=== PATIENT | male | born 1935 | race Caucasian/White ===

== ENCOUNTER 2022-12-15 12:58 | Observation (INO) | payer MEDICARE ==
[2022-12-15] MEDS ORDERED: ASPIRIN 81 MG PO STA (13:09)
[2022-12-15] MEDS ORDERED: NITROGLYCERIN OINT 1 INCH/GM PACKET TOPICAL STA (13:09)
--- NOTE | 2022-12-15 13:10 | ED ---
General Adult HPI - General Chief complaint: Chest Pain Stated complaint: [place] Pain Time Seen by Provider: 12/15/22 13:00 Source: patient, EMS, RN notes reviewed Mode of arrival: EMS Limitations: no limitations - History of Present Illness Initial comments: Patient is a pleasant 87-year-old male presenting to the emergency department with concern with chest discomfort. Onset of symptoms was prior to arrival. Symptoms lasted around a half an hour and have now resolved. Patient states he did have similar symptoms once previously associated with heart attack. Discomfort felt like pressure. No associated dyspnea, nausea, or diaphoresis. No radiation. No leg pain or leg swelling. - Related Data Allergies Allergy/AdvReac Type Severity Reaction Status Date / Time Penicillins Allergy Itching Verified 12/15/22 13:04 Review of Systems ROS Statement: Those systems with pertinent positive or pertinent negative responses have been documented in the HPI. ROS Other: All systems not noted in ROS Statement are negative. Constitutional: Denies: fever Eyes: Denies: eye pain ENT: Denies: ear pain Respiratory: Denies: cough, dyspnea Cardiovascular: Reports: as per HPI, chest pain Endocrine: Denies: fatigue Gastrointestinal: Denies: abdominal pain Genitourinary: Denies: dysuria Musculoskeletal: Denies: back pain Skin: Denies: rash General Exam Limitations: no limitations General appearance: alert, in no apparent distress Head exam: Present: normocephalic Eye exam: Present: normal appearance Neck exam: Present: normal inspection Respiratory exam: Present: normal lung sounds bilaterally. Absent: chest wall tenderness Cardiovascular Exam: Present: regular rate, normal rhythm, normal heart sounds Expanded Peripheral pulses: 2+: Radial (R), Radial (L), Dorsalis Pedis (R), Dorsalis Pedis (L) GI/Abdominal exam: Present: soft. Absent: tenderness Extremities exam: Present: pedal edema (Trace bilateral). Absent: calf tenderness Neurological exam: Present: alert Psychiatric exam: Present: normal affect, normal mood Skin exam: Present: normal color Course Vital Signs 12/15/22 13:01 Temperature 98.1 F Pulse Rate 62 Respiratory 18 Rate Blood Pressure 139/94 O2 Sat by Pulse 96 Oximetry EKG Findings - EKG Results: EKG: interpreted by ERMD ((X this. Low QRS voltage precordial leads. Lateral T wave flattening. Inferior Q waves with inverted T waves.), sinus rhythm Medical Decision Making - Medical Decision Making Was pt. sent in by a medical professional or institution (RENETTA Mahajan, REGIONAL PROJECT MANAGER, urgent care, hospital, or longterm...) When possible be specific @ -Patient does present from [facility] Did you speak to anyone other than the patient for history (EMS, parent, family, police, friend...)? What history was obtained from this source @ -Family is present and helps confirm history Did you review nursing and triage notes (agree or disagree)? Why? @ -I reviewed and agree with nursing and triage notes Were old charts reviewed (outside hosp., previous admission, EMS record, old EKG, old radiological studies, urgent care reports/EKG's, longterm records)? Report findings @ -No old charts were reviewed Differential Diagnosis (chest pain, altered mental status, abdominal pain women, abdominal pain men, vaginal bleeding, weakness, fever, dyspnea, syncope, headache, dizziness, GI bleed, back pain, seizure, CVA, palpatations, mental health, musculoskeletal)? @ -Differential Chest Pain: Stable Angina, Unstable Angina, STEMI, NSTEMI Aortic Dissection, Pneumothorax, Musculoskeletal, Esophageal Spasm GERD, Cholecystitis, Pancreatitis, Zoster, this is not meant to be an all-inclusive list. EKG interpreted by me (3pts min.). @ -As above X-rays interpreted by me (1pt min.). @ -Chest x-ray shows borderline cardiomegaly. Possible mild interstitial prominence. CT interpreted by me (1pt min.). @ -None done U/S interpreted by me (1pt. min.). @ -None done What testing was considered but not performed or refused? (CT, X-rays, U/S, labs)? Why? @ -Secondary to chest x-ray BNP will be added What meds were considered but not given or refused? Why? @ -None Did you discuss the management of the patient with other professionals (professionals i.e. RENETTA Mahajan, REGIONAL PROJECT MANAGER, lab, RT, psych nurse, social insurance administrator, retail selling floor leader, teacher, antisubmarine weapons officer, rehabilitation case coordinator)? Give summary @ -Case was discussed with Dr. corona, who will admit for hospital call. Was smoking cessation discussed for >3mins.? @ -No Was critical care preformed (if so, how long)? @ -No Were there social determinants of health that impacted care today? How? (Homelessness, low income, unemployed, alcoholism, drug addiction, transportation, low edu. Level, literacy, decrease access to med. care, shelter, rehab)? @ -No Was there de-escalation of care discussed even if they declined (Discuss DNR or withdrawal of care, Hospice)? DNR status @ -No What co-morbidities impacted this encounter? (DM, HTN, Smoking, COPD, CAD, Cancer, CVA, ARF, Chemo, Hep., AIDS, mental health diagnosis, sleep apnea, morbid obesity)? @ -None Was patient admitted / discharged? Hospital course, mention meds given and route, prescriptions, significant lab abnormalities, going to OR and other pertinent info. @ -Patient reevaluated. Patient and family updated. Patient will be admitted with cardiac consult. Undiagnosed new problem with uncertain prognosis? @ -No Drug Therapy requiring intensive monitoring for toxicity (Heparin, Nitro, Insulin, Cardizem)? @ -No Were any procedures done? @ -No Diagnosis/symptom? @ -Chest pain Acute, or Chronic, or Acute on Chronic? @ -Acute Uncomplicated (without systemic symptoms) or Complicated (systemic symptoms)? @ -default Side effects of treatment? @ -No Exacerbation, Progression, or Severe Exacerbation? @ -No Poses a threat to life or bodily function? How? (Chest pain, [place], [place], pneumonia, PE, COPD, DKA, ARF, appy, cholecystitis, CVA, Diverticulitis, Homicidal, Suicidal, threat to staff... and all critical care pts) @ -No - Lab Data Result diagrams: 12/15/22 13:12 12/15/22 13:12 Lab Results 12/15/22 12/15/22 12/15/22 Range/Units 13:12 13:12 13:12 WBC 6.8 (3.8-10.6) k/uL RBC 4.62 (4.30-5.90) m/uL Hgb 13.8 (13.0-17.5) gm/dL Hct 42.0 (39.0-53.0) % MCV 90.8 (80.0-100.0) fL MCH 29.9 (25.0-35.0) pg MCHC 32.9 (31.0-37.0) g/dL RDW 12.5 (11.5-15.5) % Plt Count 323 (150-450) k/uL MPV 7.2 Neutrophils % 61 % Lymphocytes % 25 % Monocytes % 9 % Eosinophils % 4 % Basophils % 0 % Neutrophils # 4.1 (1.3-7.7) k/uL Lymphocytes # 1.7 (1.0-4.8) k/uL Monocytes # 0.6 (0-1.0) k/uL Eosinophils # 0.3 (0-0.7) k/uL Basophils # 0.0 (0-0.2) k/uL PT 11.2 (10.0-12.5) sec INR 1.0 (<1.2) APTT 21.6 L (22.0-30.0) sec Sodium 141 (137-145) mmol/L Potassium 4.5 (3.5-5.1) mmol/L Chloride 107 (98-107) mmol/L Carbon Dioxide 25 (22-30) mmol/L Anion Gap 9 mmol/L BUN 19 (9-20) mg/dL Creatinine 0.87 (0.66-1.25) mg/dL Est GFR (CKD-EPI)AfAm 90 (>60 ml/min/1.73 sqM) Est GFR (CKD-EPI)NonAf 78 (>60 ml/min/1.73 sqM) Glucose 101 H (74-99) mg/dL Calcium 8.7 (8.4-10.2) mg/dL Magnesium 2.2 (1.6-2.3) mg/dL Total Bilirubin 1.0 (0.2-1.3) mg/dL AST 19 (17-59) U/L ALT 8 (4-49) U/L Alkaline Phosphatase 85 (38-126) U/L Troponin I (0.000-0.034) ng/mL Total Protein 6.5 (6.3-8.2) g/dL Albumin 3.4 L (3.5-5.0) g/dL 12/15/22 Range/Units 13:12 WBC (3.8-10.6) k/uL RBC (4.30-5.90) m/uL Hgb (13.0-17.5) gm/dL Hct (39.0-53.0) % MCV (80.0-100.0) fL MCH (25.0-35.0) pg MCHC (31.0-37.0) g/dL RDW (11.5-15.5) % Plt Count (150-450) k/uL MPV Neutrophils % % Lymphocytes % % Monocytes % % Eosinophils % % Basophils % % Neutrophils # (1.3-7.7) k/uL Lymphocytes # (1.0-4.8) k/uL Monocytes # (0-1.0) k/uL Eosinophils # (0-0.7) k/uL Basophils # (0-0.2) k/uL PT (10.0-12.5) sec INR (<1.2) APTT (22.0-30.0) sec Sodium (137-145) mmol/L Potassium (3.5-5.1) mmol/L Chloride (98-107) mmol/L Carbon Dioxide (22-30) mmol/L Anion Gap mmol/L BUN (9-20) mg/dL Creatinine (0.66-1.25) mg/dL Est GFR (CKD-EPI)AfAm (>60 ml/min/1.73 sqM) Est GFR (CKD-EPI)NonAf (>60 ml/min/1.73 sqM) Glucose (74-99) mg/dL Calcium (8.4-10.2) mg/dL Magnesium (1.6-2.3) mg/dL Total Bilirubin (0.2-1.3) mg/dL AST (17-59) U/L ALT (4-49) U/L Alkaline Phosphatase (38-126) U/L Troponin I <0.012 (0.000-0.034) ng/mL Total Protein (6.3-8.2) g/dL Albumin (3.5-5.0) g/dL Disposition Clinical Impression: Chest pain Disposition: ADMITTED IP TO THIS HOSP Is patient prescribed a controlled substance at d/c from ED?: No Referrals: Nonstaff,Physician [Primary Care Provider] - 1-2 days Time of Disposition: 14:05
[2022-12-15 13:37] LABS: ALT 8 U/L (4-49); AST 19 U/L (17-59); African American GFR (CKD) 90 (>60 ml/min/1.73 sqM); Albumin 3.4 g/dL (3.5-5.0); Alkaline Phosphatase 85 U/L (38-126); Anion Gap 9 mmol/L; Basophils % (A) 0 %; Blood Urea Nitrogen 19 mg/dL (9-20); Calcium 8.7 mg/dL (8.4-10.2); Carbon Dioxide 25 mmol/L (22-30); Chloride 107 mmol/L (98-107); Eosinophils # (A) 0.3 k/uL (0-0.7); Eosinophils % (A) 4 %; Glucose 101 mg/dL (74-99); HGB 13.8 gm/dL (13.0-17.5); Lymphocytes # (A) 1.7 k/uL (1.0-4.8); Lymphocytes % (A) 25 %; MCH 29.9 pg (25.0-35.0); MCHC 32.9 g/dL (31.0-37.0); MCV 90.8 fL (80.0-100.0); Magnesium 2.2 mg/dL (1.6-2.3); Mean Platelet Volume 7.2; Monocytes # (A) 0.6 k/uL (0-1.0); Monocytes % (A) 9 %; Neutrophils # (A) 4.1 k/uL (1.3-7.7); Neutrophils % (A) 61 %; Non-African American GFR(CKD) 78 (>60 ml/min/1.73 sqM); Platelet Count 323 k/uL (150-450); Potassium 4.5 mmol/L (3.5-5.1); RBC 4.62 m/uL (4.30-5.90); RDW 12.5 % (11.5-15.5); Sodium 141 mmol/L (137-145); Total Protein 6.5 g/dL (6.3-8.2); WBC 6.8 k/uL (3.8-10.6)
[2022-12-15 13:50] LABS: Prothrombin Time 11.2 sec (10.0-12.5)
[2022-12-15 13:53] LABS: Partial Thromboplastin Time 21.6 sec (22.0-30.0)
--- NOTE | 2022-12-15 13:54 | XR ---
EXAMINATION TYPE: XR chest 2V DATE OF EXAM: 12/15/2022 COMPARISON: NONE HISTORY: Shortness of breath TECHNIQUE: Frontal and lateral views of the chest are obtained. FINDINGS: Scattered senescent parenchymal changes noted. No evidence for infiltrate. No evidence for atelectasis. The heart is at the upper limits of normal. Mild pulmonary venous congestion without overt failure at this time. Mediastinal structures are stable and grossly unremarkable. No evidence for hilar prominence. Degenerative changes dorsal spine. IMPRESSION: 1. The heart is at the upper limits of normal. Mild pulmonary venous congestion without overt failure at this time.
[2022-12-15] MEDS ORDERED: NITROGLYCERIN SL TABS 0.4 MG TAB SUBLINGUAL PRN (14:24)
--- NOTE | 2022-12-15 16:50 | P.HPIM ---
History of Present Illness H&P Date: 12/15/22 Patient is a 87-year-old male with history of Parkinson's disease, dementia, CAD presented with chest pain. Patient is a poor historian. He is a resident of a nursing facility. He claims that chest pain started a few hours ago and lasted about 2 hours, and was mostly left-sided, nonradiating. It has not completely resolved. He denies any palpitations, shortness of breath, abdominal pain, nausea, vomiting, radiation, urinary or bowel complaints. He is unsure of which medications he takes. He claims that his also states rhythm. In the ED, temperature was 98.1, pulse 62, respiratory rate 18, blood pressure 139/94, saturating at 96% on room air. EKG independently interpreted, shows sinus bradycardia with T-wave inversions in inferior leads. No comparison available. Chest x-ray interstitial opacities, poor inspiratory effort. WBC 6.8, hemoglobin 13.8, platelet 323, potassium 4.5, creatinine 0.87, glucose 101, troponin negative. Cardiology consulted. Pertinent positives and negatives as discussed in HPI, a complete review of systems was performed and all other systems are negative. Patient seen and examined at bedside. Vital signs reviewed General: nontoxic, no distress, appears at stated age Derm: warm, dry Head: atraumatic, normocephalic, symmetric Eyes: EOMI, no lid lag, anicteric sclera, pupils equal round reactive to light ENT: Nose and ears atraumatic Neck: No thyromegaly, supple Mouth: no lip lesion, mucus membranes moist Cardiovascular: S1S2 reg, no murmur, trace peripheral edema Lungs: clear to auscultation bilateral, no rhonchi, no rales, no wheeze, no accessory muscle use Abdominal: soft, nontender to palpation, no guarding, no appreciable organomegaly Ext: no gross muscle atrophy, muscle strength muscle strength 5 out of 5 in all 4 extremities, no contractures Neuro: CN II-XII grossly intact Psych: Alert, oriented 1, appropriate affect Assessment/Plan: Active: Chest pain History of CAD -Trend troponin -Continue telemetry -Cardiology consulted -Echocardiogram pending -Aspirin 81 mg -A1c, TSH, lipid panel ordered -Also on topical nitroglycerin per ED Chronic: Dementia Parkinson's disease The patient is admitted with an anticipated less than 2 midnight stay as observation status for evaluation of chest pain. Surrogate decision-maker: Power of deputy prosecuting attorney CODE STATUS: Full code DVT prophylaxis: Lovenox Anticipated discharge date: Pending clinical course Anticipated discharge place: Pending clinical course A total of 55 minutes was spent on the care of this complex patient more than 50% of the time was spent in counseling and care coordination. Medications and Allergies Home Medications Medication Instructions Recorded Confirmed Type Carbidopa-Levodopa 25-250 mg 1 - 2 tab PO DIRECTED 12/15/22 12/15/22 History [Sinemet 25-250] Cholecalciferol [Vitamin D3 (125 125 mcg PO DAILY 12/15/22 12/15/22 History Mcg = 5000 Iu)] Cyanocobalamin (Vitamin B-12) 1,000 mcg PO HS 12/15/22 12/15/22 History [Vitamin B-12] Donepezil [Aricept] 10 mg PO HS 12/15/22 12/15/22 History Allergies Allergy/AdvReac Type Severity Reaction Status Date / Time codeine Allergy Unknown Verified 12/15/22 15:18 Penicillins Allergy Itching Verified 12/15/22 15:18 Physical Exam Vitals: Vital Signs Temp Pulse Resp BP Pulse Ox 12/15/22 14:48 66 18 150/83 96 12/15/22 13:01 98.1 F 62 18 139/94 96 Intake and Output 12/15/22 12/15/22 12/15/22 06:59 14:59 22:59 Other: Weight 95.254 kg Results CBC & Chem 7: 12/15/22 13:12 12/15/22 13:12 Labs: Abnormal Lab Results - Last 24 Hours (Table) 12/15/22 12/15/22 Range/Units 13:12 13:12 APTT 21.6 L (22.0-30.0) sec Glucose 101 H (74-99) mg/dL Albumin 3.4 L (3.5-5.0) g/dL
[2022-12-15] MEDS: NITROGLYCERIN OINT 1 INCH/GM PACKET TOPICAL SCH ×2 (17:51→23:06)
[2022-12-15] MEDS: CARBIDOPA-LEVODOPA 25-250 MG 1 EACH TAB PO SCH (17:51)
[2022-12-15] MEDS: CYANOCOBALAMIN 500 MCG TAB PO SCH (20:27)
[2022-12-15] MEDS: DONEPEZIL 10 MG TAB PO SCH (20:27)
[2022-12-16] MEDS: NITROGLYCERIN OINT 1 INCH/GM PACKET TOPICAL SCH (05:40)
[2022-12-16] MEDS ORDERED: AMINOPHYLLINE 500 MG/20 ML VIAL IV PRN (08:26)
[2022-12-16] MEDS ORDERED: CAFFEINE CITRATE 60 MG/3 ML VIAL IV PRN (08:26)
[2022-12-16] MEDS ORDERED: REGADENOSON 0.4 MG/5 ML SYRINGE IV PRN (08:26)
[2022-12-16] MEDS ORDERED: ASPIRIN 325 MG TAB PO SCH (09:00)
[2022-12-16] MEDS: ASPIRIN 81 MG PO SCH (09:08)
[2022-12-16] MEDS: CHOLECALCIFEROL 125 MCG (5000 IU) TABLET PO SCH (09:08)
[2022-12-16] MEDS: ENOXAPARIN 40 MG/0.4 ML SYRINGE SQ SCH (09:08)
--- NOTE | 2022-12-16 10:08 | P.CRDCN ---
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 Patient does not follow with a installer apprentice. We have been asked to see the patient in consultation for chest pain. Patient examined at the bedside. Patient is a resident of [facility]. Patient was brought to the hospital due to a chief complaint of chest pain. The patient is somewhat of a poor historian. He does report having chest pain yesterday on the left side of his chest. He describes it as a tightness. He denied having any shortness of breath. He denied any radiation of the pain. Patient currently denies any chest pain or pressure. He denies any shortness of breath. Vital signs are stable. * EKG reveals sinus mechanism with T-wave inversions inferiorly. Repeat EKG 2 with resolution of EKG abnormalities * Chest xray the heart is at the upper limits of normal. Mild pulmonary venous congestion without overt failure at this time. * Current home cardiac medications include none REVIEW OF SYSTEMS: At the time of my exam: CONSTITUTIONAL: Denies fever or chills. HEENT: Denies blurred vision, vision changes, or eye pain. Denies hemoptysis CARDIOVASCULAR: Denies chest pain. Denies orthopnea. Denies PND. Denies palpitations RESPIRATORY: Denies shortness of breath. GASTROINTESTINAL: Denies abdominal pain. Denies nausea or vomiting. HEMATOLOGIC: Denies bleeding disorders. GENITOURINARY: Denies any blood in urine. SKIN: Denies pruitis. Denies rash. PHYSICAL EXAM: VITAL SIGNS: Reviewed. GENERAL: Well-developed in no acute distress. HEENT: Head is normocephalic. Pupils are equal, round. Sclerae anicteric. Mucous membranes of the mouth are moist. Neck supple. No JVD or thyromegaly LUNGS: Respirations even and unlabored. Lungs essentially clear to auscultation bilaterally. HEART: Regular rate and rhythm. S1 and S2 heard. ABDOMEN: Soft. Nondistended. Nontender. EXTREMITIES: Normal range of motion. No clubbing or cyanosis. Peripheral pulses intact. No lower extremity edema NEUROLOGIC: Awake and alert. Oriented x 2. ASSESSMENT: Chest pain, troponins negative 3 Parkinson's disease History of dementia Reported history of myocardial infarction without stenting PLAN: An acute coronary event has been ruled out Begin aspirin 81 mg daily and Lipitor 20 mg at night. Obtain lipid panel. Dr. Rodríguez discussed findings and patient condition with Rolando Gillette, patient's son and power of ceramics instructor. He states that his father is to be a DO NOT RESUSCITATE. He does report that his father has a history of dementia and is a resident of [facility]. He does not want any invasive procedures such as a cardiac catheterization performed. Patient's son also declining to have stress testing performed at this time. We will continue with conservative management which is reasonable given patient's age and comorbidities Obtain 2-D echo to assess cardiac structure and function Further recommendations pending patient's course Nurse practitioner note has been reviewed by physician. Signing provider agrees with the documented findings, assessment, and plan of care. Past Medical History History of Any Multi-Drug Resistant Organisms: Unobtainable Smoking Status: Unknown if ever smoked Medications and Allergies Home Medications Medication Instructions Recorded Confirmed Type Carbidopa-Levodopa 25-250 mg 1 - 2 tab PO DIRECTED 12/15/22 12/15/22 History [Sinemet 25-250] Cholecalciferol [Vitamin D3 (125 125 mcg PO DAILY 12/15/22 12/15/22 History Mcg = 5000 Iu)] Cyanocobalamin (Vitamin B-12) 1,000 mcg PO HS 12/15/22 12/15/22 History [Vitamin B-12] Donepezil [Aricept] 10 mg PO HS 12/15/22 12/15/22 History Allergies Allergy/AdvReac Type Severity Reaction Status Date / Time codeine Allergy Unknown Verified 12/15/22 15:18 Penicillins Allergy Itching Verified 12/15/22 15:18 Physical Exam Vitals: Vital Signs Temp Pulse Pulse Resp BP BP Pulse Ox 12/16/22 07:00 97.6 F 64 15 128/73 96 12/16/22 03:57 98.4 F 66 18 121/67 94 L 12/15/22 22:05 97.5 F L 65 16 123/73 95 12/15/22 21:24 71 18 112/65 95 12/15/22 20:30 76 18 118/81 12/15/22 20:18 89 19 12/15/22 14:48 66 18 150/83 96 12/15/22 13:01 98.1 F 62 18 139/94 96 Intake and Output 12/15/22 12/16/22 12/16/22 22:59 06:59 14:59 Output Total 100 Balance -100 Output: Urine 100 Other: Voiding Method External Catheter Weight 95.254 kg Results 12/15/22 13:12 12/15/22 13:12 Cardiac Enzymes 12/15/22 12/15/22 12/15/22 Range/Units 13:12 13:12 16:11 AST 19 (17-59) U/L Troponin I <0.012 <0.012 (0.000-0.034) ng/mL 12/15/22 Range/Units 18:53 AST (17-59) U/L Troponin I <0.012 (0.000-0.034) ng/mL Coagulation 12/15/22 Range/Units 13:12 PT 11.2 (10.0-12.5) sec APTT 21.6 L (22.0-30.0) sec CBC 12/15/22 Range/Units 13:12 WBC 6.8 (3.8-10.6) k/uL RBC 4.62 (4.30-5.90) m/uL Hgb 13.8 (13.0-17.5) gm/dL Hct 42.0 (39.0-53.0) % Plt Count 323 (150-450) k/uL Comprehensive Metabolic Panel 12/15/22 Range/Units 13:12 Sodium 141 (137-145) mmol/L Potassium 4.5 (3.5-5.1) mmol/L Chloride 107 (98-107) mmol/L Carbon Dioxide 25 (22-30) mmol/L BUN 19 (9-20) mg/dL Creatinine 0.87 (0.66-1.25) mg/dL Glucose 101 H (74-99) mg/dL Calcium 8.7 (8.4-10.2) mg/dL AST 19 (17-59) U/L ALT 8 (4-49) U/L Alkaline Phosphatase 85 (38-126) U/L Total Protein 6.5 (6.3-8.2) g/dL Albumin 3.4 L (3.5-5.0) g/dL Current Medications Generic Name Dose Route Start Last Admin Trade Name Freq PRN Reason Stop Dose Admin Aspirin 81 mg 12/16/22 09:00 Aspirin 81 Mg PO DAILY [facility] Carbidopa/Levodopa 1 - 2 each 12/15/22 16:45 12/15/22 17:51 Carbidopa-Levodopa 25-250 Mg 1 Each Tab PO 1 each DIRECTED ESTER Administration Cholecalciferol 125 mcg 12/16/22 09:00 Cholecalciferol 125 Mcg (5000 Iu) Tablet PO DAILY ESTER Cyanocobalamin 1,000 mcg 12/15/22 21:00 12/15/22 20:27 Cyanocobalamin 500 Mcg Tab PO 1,000 mcg HS ESTER Administration Donepezil HCl 10 mg 12/15/22 21:00 12/15/22 20:27 Donepezil 10 Mg Tab PO 10 mg HS ESTER Administration Enoxaparin Sodium 40 mg 12/16/22 09:00 Enoxaparin 40 Mg/0.4 Ml Syringe SQ DAILY ESTER Nitroglycerin 0.4 mg 12/15/22 14:24 Nitroglycerin Sl Tabs 0.4 Mg Tab SUBLINGUAL Q5M PRN Chest Pain Intake and Output 12/15/22 12/16/22 12/16/22 22:59 06:59 14:59 Output Total 100 Balance -100 Output: Urine 100 Other: Voiding Method External Catheter Weight 95.254 kg 12/15/22 13:12 12/15/22 13:12
[2022-12-16 11:09] LABS: Chol/HDL Ratio 3.98 Ratio; LDL Cholesterol,Calculated 95.8 mg/dL (0.0-131.0)
--- NOTE | 2022-12-16 13:09 | P.PN ---
Subjective Progress Note Date: 12/16/22 Hospital Course: 87-year-old male with history of Parkinson's disease, dementia, CAD presented with chest pain. In the ED, temperature was 98.1, pulse 62, respiratory rate 18, blood pressure 139/94, saturating at 96% on room air. EKG independently interpreted, shows sinus bradycardia with T-wave inversions in inferior leads. No comparison available. Chest x-ray interstitial opacities, poor inspiratory effort. WBC 6.8, hemoglobin 13.8, platelet 323, potassium 4.5, creatinine 0.87, glucose 101, troponin negative. Cardiology consulted. Currently chest pain- free. Family does not want to pursue any further stress testing or interventions. Would only prefer medical management. Echocardiogram pending. Subjective: Patient seen and examined at bedside. No acute events overnight. Denies any further chest pain. Pertinent positives and negatives as discussed above, a complete review of systems was performed and all other systems are negative. Vitals Signs Reviewed. General: nontoxic, no distress, appears at stated age Derm: warm, dry Head: atraumatic, normocephalic, symmetric Eyes: EOMI, no lid lag, anicteric sclera Mouth: no lip lesion, mucus membranes moist Cardiovascular: S1S2 reg, no murmur Lungs: CTA bilateral, no rhonchi, no rales , no accessory muscle use Abdominal: soft, nontender to palpation, no guarding, no appreciable organomegaly Ext: no gross muscle atrophy, no edema, no contractures Neuro: CN II-XI grossly intact, no focal neuro deficits Psych: Alert, oriented 1, appropriate affect Data Reviewed Today: Pertinent Labs: LDL is 95.8, troponin negative 3, A1c 6.1, TSH 2.6 Imaging: No new imaging Assessment and Plan: Chest pain History of CAD -Cardiology note reviewed: Family does not want any further interventions are stress testing, only prefers medical management -Echocardiogram pending -Aspirin 81 mg atorvastatin 20 mg Chronic: Dementia Parkinson's disease DVT ppx: Lovenox Code status: DNR/DNI Anticipated discharge place: Home Anticipated discharge time: Pending echo report Objective - Vital Signs Vital signs: Vital Signs Temp 97.6 F 12/16/22 07:00 Pulse 64 12/16/22 08:00 Resp 16 12/16/22 08:00 BP 128/73 10/25/23 07:00 Pulse Ox 96 12/16/22 07:00 FiO2 Intake & Output 12/15/22 12/16/22 12/16/22 18:59 06:59 18:59 Intake Total 118 Output Total 100 Balance -100 118 Weight 95.254 kg Intake: Oral 118 Output: Urine 100 Other: Voiding Method External Catheter External Catheter - Labs CBC & Chem 7: 12/15/22 13:12 12/15/22 13:12 Labs: Abnormal Lab Results - Last 24 Hours (Table) 12/15/22 12/15/22 12/16/22 Range/Units 13:12 13:12 06:09 APTT 21.6 L (22.0-30.0) sec Glucose 101 H (74-99) mg/dL Hemoglobin A1c 6.1 H (<=6.0) % Albumin 3.4 L (3.5-5.0) g/dL HDL Cholesterol (40.00-60.00) mg/dL 12/16/22 Range/Units 06:09 APTT (22.0-30.0) sec Glucose (74-99) mg/dL Hemoglobin A1c (<=6.0) % Albumin (3.5-5.0) g/dL HDL Cholesterol 39.20 L (40.00-60.00) mg/dL
[2022-12-16] MEDS ORDERED: CARBIDOPA-LEVODOPA 25-250 MG 1 EACH TAB PO ONE ×2 (19:00→23:00)
[2022-12-16] MEDS: DONEPEZIL 10 MG TAB PO SCH (20:13)
[2022-12-16] MEDS: CYANOCOBALAMIN 500 MCG TAB PO SCH (20:13)
[2022-12-16] MEDS: CARBIDOPA-LEVODOPA 25-250 MG 1 EACH TAB PO SCH (20:23)
[2022-12-16] MEDS ORDERED: ATORVASTATIN 20 MG TAB PO SCH (21:00)
[2022-12-17] MEDS: ENOXAPARIN 40 MG/0.4 ML SYRINGE SQ SCH (08:01)
[2022-12-17] MEDS: ASPIRIN 81 MG PO SCH (08:01)
[2022-12-17] MEDS: CHOLECALCIFEROL 125 MCG (5000 IU) TABLET PO SCH (08:01)
[2022-12-17 08:47] VITALS: BP 124/72; PULSE 66; RESP 15; TEMP 97.8
[2022-12-17] MEDS ORDERED: CARBIDOPA-LEVODOPA 25-250 MG 1 EACH TAB PO SCH ×3 (09:00→21:00)
--- NOTE | 2022-12-17 10:36 | CA ---
Transthoracic Echo Report Name: Jack Gillette Age: 87 Gender: M : 1935 Exam Date: 12/16/2022 11:08 Exam Location: [facility] Ht (in): 69 Wt (lb): 210 Ordering Physician: Clem Wylie MD Attending/Referring Phys: Field Account Manager Manisha Gill RDCS Procedure CPT: Indications: Chest Pain Cardiac Hx: Technical Quality: Fair Contrast 1: Total Dose (mL): Contrast 2: Total Dose (mL): MEASUREMENTS (Male / Female) Normal Values 2D ECHO LV Diastolic Diameter PLAX 3.6 cm 4.2 - 5.9 / 3.9 - 5.3 cm LV Systolic Diameter PLAX 2.4 cm IVS Diastolic Thickness 1.4 cm 0.6 - 1.0 / 0.6 - 0.9 cm LVPW Diastolic Thickness 1.2 cm 0.6 - 1.0 / 0.6 - 0.9 cm LV Relative Wall Thickness 0.7 RV Internal Dim ED PLAX 4.1 cm M-MODE Aortic Root Diameter MM 2.9 cm LA Systolic Diameter MM 4.0 cm LA Ao Ratio MM 1.4 AV Cusp Separation MM 1.2 cm DOPPLER AV Peak Velocity 214.3 cm/s AV Peak Gradient 18.4 mmHg AV Mean Velocity 158.5 cm/s AV Mean Gradient 11.0 mmHg AV Velocity Time Integral 45.3 cm AI Peak Velocity 285.1 cm/s AI Peak Gradient 32.5 mmHg AI Pressure Half Time 594.8 ms LVOT Peak Velocity 122.0 cm/s LVOT Peak Gradient 6.0 mmHg LVOT Velocity Time Integral 27.1 cm MV Area PHT 2.7 cm??? Mitral E Point Velocity 114.6 cm/s Mitral A Point Velocity 127.6 cm/s Mitral E to A Ratio 0.9 MV Deceleration Time 277.7 ms MV E' Velocity 6.9 cm/s Mitral E to MV E' Ratio 16.7 FINDINGS Left Ventricle Moderately increased left ventricular wall thickness. Left ventricular cavity size normal. Normal left ventricular systolic function with no obvious regional wall motion abnormalities. Left ventricular ejection fraction is estimated at 55 %. Right Ventricle Moderate right ventricular dilatation. Right ventricular systolic pressure could not be estimated Right Atrium Normal right atrial size. Left Atrium Normal left atrial size. Mitral Valve Severe mitral annular calcification. Mild mitral stenosis. Mild mitral regurgitation. Aortic Valve Mild aortic stenosis with a peak gradient of 18 mmHg and a mean gradient of 11 mmHg. Mild aortic regurgitation. Tricuspid Valve Structurally normal tricuspid valve. Mild tricuspid regurgitation. Pulmonic Valve Structurally normal pulmonic valve. Trace to mild pulmonic regurgitation. Pericardium No pericardial effusion. Aorta Normal size aortic root and proximal ascending aorta. CONCLUSIONS Left ventricular ejection fraction is estimated at 55 %. No obvious regional wall motion abnormalities. Moderately increased left ventricular wall thickness. Severe mitral annular calcification. Calcific aortic valve with mild stenosis and mild regurgitation No pericardial effusion Previewed by: Dr Rosales Rodríguez (Electronically Signed) Final Date: 17 December 2022 10:35
--- NOTE | 2022-12-17 11:11 | P.PN ---
Subjective HISTORY OF PRESENT ILLNESS: This is a 87-year-old male with a past medical history significant for dementia, Parkinson's disease, and reported myocardial infarction without stenting. Patient does not follow with a publication designer. We have been asked to see the patient in consultation for chest pain. Patient examined at the bedside. Patient is a resident of [facility]. Patient was brought to the hospital due to a chief complaint of chest pain. The patient is somewhat of a poor historian. He does report having chest pain yesterday on the left side of his chest. He describes it as a tightness. He denied having any shortness of breath. He denied any radiation of the pain. Patient currently denies any chest pain or pressure. He denies any shortness of breath. Vital signs are stable. * EKG reveals sinus mechanism with T-wave inversions inferiorly. Repeat EKG 2 with resolution of EKG abnormalities * Chest xray the heart is at the upper limits of normal. Mild pulmonary venous congestion without overt failure at this time. * Current home cardiac medications include none 12/17/2022 Patient examined this morning at the bedside. Patient denies any further episodes of chest pain or pressure. He denies shortness of breath. Vital signs are stable. Echocardiogram completed revealing ejection fraction 55%, mild mitral stenosis, mild mitral regurgitation, mild tricuspid regurgitation, and mild aortic stenosis. PHYSICAL EXAM: VITAL SIGNS: Reviewed. GENERAL: Well-developed in no acute distress. HEENT: Head is normocephalic. Pupils are equal, round. Sclerae anicteric. Mucous membranes of the mouth are moist. Neck supple. No JVD or thyromegaly LUNGS: Respirations even and unlabored. Lungs essentially clear to auscultation bilaterally. HEART: Regular rate and rhythm. S1 and S2 heard. ABDOMEN: Soft. Nondistended. Nontender. EXTREMITIES: Normal range of motion. No clubbing or cyanosis. Peripheral pulses intact. No lower extremity edema NEUROLOGIC: Awake and alert. Oriented x 2. ASSESSMENT: Chest pain, troponins negative 3 Parkinson's disease History of dementia Reported history of myocardial infarction without stenting PLAN: Continue current cardiac medications Patient is stable from a cardiac perspective with no further inpatient recommendations We will sign off. Please reconsult if needed. Nurse practitioner note has been reviewed by physician. Signing provider agrees with the documented findings, assessment, and plan of care. Objective - Vital Signs Vital signs: Vital Signs Temp 97.8 F 12/17/22 07:00 Pulse 66 12/17/22 07:00 Resp 15 12/17/22 07:00 BP 124/72 12/17/22 07:00 Pulse Ox 98 12/17/22 07:00 FiO2 Intake & Output 12/16/22 12/17/22 12/17/22 18:59 06:59 18:59 Intake Total 118 Output Total 300 600 Balance -182 -600 Intake: Oral 118 Output: Urine 300 600 Other: Voiding Method External Catheter External Catheter External Catheter - Labs CBC & Chem 7: 12/15/22 13:12 12/15/22 13:12 Labs: Abnormal Lab Results - Last 24 Hours (Table) 12/16/22 Range/Units 06:09 HDL Cholesterol 39.20 L (40.00-60.00) mg/dL
--- NOTE | 2022-12-17 13:20 | P.DS ---
Providers Date of admission: 12/15/22 14:24 Expected date of discharge: 12/17/22 Attending physician: Clem Wylie MD Primary care physician: Indra Motley [facility] Hospital Course: Discharge Diagnosis: Chest pain, acute coronary event was ruled out. Troponins negative 3. EKG showing sinus bradycardia at 58 bpm with T-wave inversion in inferior leads II and aVF. Echocardiogram completed showing an EF of 55% with severe mitral calcifications along with mild aortic stenosis and regurgitation. Cardiology evaluated recommending continuation of current cardiac medication regimen with no further recommendations at this time clearing patient from cardiac perspective recommending outpatient follow-up. History of CAD Dementia Parkinson's disease Hospital Course: Patient is a very pleasant 87-year-old male with history of Parkinson's disease, dementia, and CAD. He presented to the emergency department on 12/15/22 with chest pain. In the ED, temperature was 98.1, pulse 62, respiratory rate 18, blood pressure 139/94, saturating at 96% on room air. EKG independently interpreted, shows sinus bradycardia with T-wave inversions in inferior leads. No comparison available. Chest x-ray interstitial opacities, poor inspiratory effort. WBC 6.8, hemoglobin 13.8, platelet 323, potassium 4.5, creatinine 0.87, glucose 101, troponin negative. Patient was admitted under our services with consult cardiology patient underwent monitoring overnight and troponins were trended all negative at less than 0.0123 draws. ProBNP also low 366. Lipid profile was unremarkable with the exception of low HDL of 39.20. Hemoglobin A1c was slightly elevated at 6.1%. Family did not want to pursue any further stress testing or interventions. Would only prefer only medical management. Echocardiogram completed showing an EF of 55% with severe mitral calcifications along with mild aortic stenosis and regurgitation. Cardiology evaluated recommending continuation of current cardiac medication regimen with no further recommendations at this time clearing patient from cardiac perspective recommending outpatient follow-up. Patient was started on atorvastatin 20 mg nightly and aspirin 81 mg daily and prescriptions were sent. Patient remains free from chest pain or any other complaints at this time. Medically, patient is stable at this time and free from any chest pain or other complaints. Vital signs unremarkable with blood pressure 124/72, heart rate 66, respiratory rate 15, temperature 97.8F, SpO2 of 90% on room air. Patient is medically stable for discharge back to [facility] at this time. Patient to follow up outpatient with PCP in 1-2 days and with college administrator in 1-2 weeks. Physical exam: Vital signs reviewed and stable. General: Nontoxic, no distress and appears stated age. Derm: Skin warm and dry, normal coloration for ethnicity. Head: Atraumatic, normocephalic and symmetric. Eyes: EOMs intact, no lid lag, and anicteric sclera Mouth: no lip lesions, mucus membranes moist Cardiovascular: regular rate and rhythm with normal S1S2, systolic murmur, positive posterior tibial pulses bilaterally, and cap refill < 2 seconds. Lungs: Respirations even, regular, and unlabored on room air. Lungs CTA bilaterally, no rhonchi, no rales, no wheezing, and no accessory muscle usage. Abdominal: soft, nontender to palpation, no guarding, no appreciable organomegaly Ext: ROM intact. No gross muscle atrophy, no edema, no contractures Neuro: Speech clear, face symmetrical and CN II-XII grossly intact with no noted focal neuro deficits Psych: Alert and oriented to person, place, time, and situation. Appropriate and pleasant affect. A total of 33 minutes of time were spent preparing this complex discharge summary. Pt was discharged on 12/17/22 at 1:18 PM Patient was seen independently by Nurse Practitioner. This document was prepared using [employer] dictation software. Please allow for errors in rejogger while rare they do occur. Patient Condition at Discharge: Stable Plan - Discharge Summary New Discharge Prescriptions: New Atorvastatin [Lipitor] 20 mg PO HS 90 Days #90 tab Aspirin 81 mg PO DAILY 90 Days #90 tab Continue Donepezil [Aricept] 10 mg PO HS Carbidopa-Levodopa 25-250 mg [Sinemet 25-250 mg] 1 - 2 tab PO DIRECTED Cholecalciferol [Vitamin D3 (125 Mcg = 5000 Iu)] 125 mcg PO DAILY Cyanocobalamin (Vitamin B-12) [Vitamin B-12] 1,000 mcg PO HS Discharge Medication List Carbidopa-Levodopa 25-250 mg [Sinemet 25-250 mg] 1 - 2 tab PO DIRECTED 12/15/22 [History] Cholecalciferol [Vitamin D3 (125 Mcg = 5000 Iu)] 125 mcg PO DAILY 12/15/22 [History] Cyanocobalamin (Vitamin B-12) [Vitamin B-12] 1,000 mcg PO HS 12/15/22 [History] Donepezil [Aricept] 10 mg PO HS 12/15/22 [History] Aspirin 81 mg PO DAILY 90 Days #90 tab 12/17/22 [Rx] Atorvastatin [Lipitor] 20 mg PO HS 90 Days #90 tab 12/17/22 [Rx] Follow up Appointment(s)/Referral(s): Rosales Rodríguez MD [Medical Doctor] - 2 Weeks Regino Gillette MD [STAFF PHYSICIAN] - 1 Week Activity/Diet/Wound Care/Special Instructions: Activity: As tolerated. Take breaks as needed. Diet: Heart healthy and carb consistent diet. Avoid salts, or foods with hidden salts such as canned or boxed foods and frozen dinners. Extra salt makes your heart work harder and traps the fluid in your body for longer. Special Instructions: Take all of your medications as directed and remember to keep all of your doctor's appointments and follow-up as needed. Thank you for allowing us to participate in your care, it was truly a pleasure having you for our patient!!! Discharge Disposition: HOME WITH HOME HEALTH SERVICES
[2022-12-18] MEDS ORDERED: CARBIDOPA-LEVODOPA 25-250 MG 1 EACH TAB PO SCH ×3 (09:00→21:00)
== END 2022-12-17 15:21 | disposition home health service (06) ==
LOC: EC 12:58 → 6NMEDSUR 14:24
PROVIDERS: ADMIT Student in an Organized Health Care Education/Training Program; ATTEND Student in an Organized Health Care Education/Training Program
DX: R07.89 Other chest pain (principal); G20.A1 Parkinson's disease without dyskinesia, without mention of fluctuations; F02.80 Dementia in other diseases classified elsewhere, unspecified severity, without behavioral disturbance, psychotic disturbance, mood disturbance, and anxiety; I25.10 Atherosclerotic heart disease of native coronary artery without angina pectoris; I25.2 Old myocardial infarction; Z66 Do not resuscitate; Z88.0 Allergy status to penicillin; Z88.5 Allergy status to narcotic agent
CPT/HCPCS: 96372 ×2; 99285; 36415; 93005; 93306; 83880; 80061; 80053; 84443; 83735; 84484; 85025; 85610; 85730; 83036; 71046; G0378 ×3; J1650 ×2